=== PATIENT | female | born 1935 | race Caucasian/White ===

== ENCOUNTER → 2016-09-28 | Day surgery (SDC) | payer MEDICARE, OTHER ==
[~2016-09-28] MED LIST: ALDACTONE25 MG PO; COUMADIN PO; FENOFIBRATE40 MG PO; FUROSEMIDE40 MG PO; LASIX20 MG PO; LEVOTHYROXINE25 MCG PO; OMEPRAZOLE20 M2 PO; POLYOX WSR-3011 GM PO; SENNA-TIME S T1 EACH PO; TOPROL XL PO; UTI-STAT L3875 MG/31 PO; VIT B-12 SUBQ; VITAMIN D250000 UNIT PO
--- NOTE | ~2016-09-28 | OR ---
Unit #: [id number] #: [id number] Patient: EDWARD BERNSTEIN [id number] [address] [place], [place] [address] [id number] O MR#: [id number] NAME: EDWARD JOHNSTON ROOM: Date of Procedure: 09/28/2016 Admission Date: 09/28/2016 Surgeon: Ashu Valdes M.D. : 1935 Attending Physician: Ashu Valdes M.D. Primary Care Physician: Shannon Ndiaye M.D. OPERATIVE REPORT PREOPERATIVE DIAGNOSIS Enlarging raised irregular skin lesion, left upper arm. POSTOPERATIVE DIAGNOSIS Enlarging raised irregular skin lesion, left upper arm. PROCEDURE PERFORMED Excision of enlarging raised irregular skin lesion, left upper arm, 4 x 2 cm with layered closure. ANESTHESIA Monitored anesthesia care with 1% Xylocaine plain local anesthesia. FINDINGS The area was excised with grossly negative margins and closed with a layered closure. SPECIMENS Sent to Pathology. COMPLICATIONS None apparent. CONDITION The patient tolerated the procedure well. INDICATIONS FOR PROCEDURE The patient is an 81-year-old white female, who has a raised irregular skin lesion in sun-exposed area. Suspicious for malignancy. She presents at this time for excision and closure. DESCRIPTION OF PROCEDURE After obtaining informed consent as well as receiving preoperative antibiotics, the patient was brought to the operating room and after adequate monitored anesthesia care, had the left upper arm prepped and draped in a sterile fashion. The area was anesthetized with 1% Xylocaine plain local anesthesia. An elliptical incision was made circumferentially with a margin of normal tissue grossly present circumferentially. It was taken down through the skin with a knife and through the subdermal tissues and subcutaneous tissues with electrocautery with good hemostasis. It was sent to Pathology. The wound was irrigated. Hemostasis was obtained with Unit #: [id number] #: [id number] Patient: EDWARD BERNSTEIN, infiltrated with additional local anesthesia. The deep tissues were reapproximated with interrupted 3-0 Vicryl suture and the skin was closed with surgical selin followed by dry dressing and a Tegaderm dressing. Needle counts, sponge counts, and instrument counts were all correct as reported by the scrub nurse x2. The patient went from the operating room to recovery room in stable condition. Dictated by... Bri Marin/melissa TD: 09/29/2016 03:37 JOB #: [id number] CC: [facility] OPERATIVE REPORT Page 1 of 1 X Ashu Valdes MD X PROCEDURE OPERATIVE NOTE
[2016-09-28 09:06] LABS: INR 1.2; PROTHROMBIN TIME (PATIENT) 12.7 SECONDS (9.6-11.5)
== END | disposition home or self-care (01) ==
LOC: CSUR 07:34
PROVIDERS: Surgery
DX: C44.629 Squamous cell carcinoma of skin of left upper limb, including shoulder (principal); L85.8 Other specified epidermal thickening; E78.5 Hyperlipidemia, unspecified; I10 Essential (primary) hypertension; I25.10 Atherosclerotic heart disease of native coronary artery without angina pectoris; D64.9 Anemia, unspecified; F03.90 Unspecified dementia, unspecified severity, without behavioral disturbance, psychotic disturbance, mood disturbance, and anxiety; K57.90 Diverticulosis of intestine, part unspecified, without perforation or abscess without bleeding; I48.91 Unspecified atrial fibrillation; M19.90 Unspecified osteoarthritis, unspecified site; K21.9 Gastro-esophageal reflux disease without esophagitis; K44.9 Diaphragmatic hernia without obstruction or gangrene; E03.9 Hypothyroidism, unspecified; E78.01 Familial hypercholesterolemia; Z95.0 Presence of cardiac pacemaker; Z79.82 Long term (current) use of aspirin; Z98.890 Other specified postprocedural states; Z88.5 Allergy status to narcotic agent; Z79.01 Long term (current) use of anticoagulants; Z79.899 Other long term (current) drug therapy; Z88.2 Allergy status to sulfonamides
CPT/HCPCS: 85610; 88305; J0690